=== PATIENT | female | born 2000 | race Hispanic/Latino ===

== ENCOUNTER 2022-05-19 14:36 | Outpatient (CLI) | payer BC, OTHER | END 2022-05-19 14:37 | disposition home or self-care (01) | LOC: EDBD 14:36 → CSHULT 14:36 | PROVIDERS: ATTEND Nurse Practitioner Women's Health | DX: Z34.82 Encounter for supervision of other normal pregnancy, second trimester (principal); Z3A.22 22 weeks gestation of pregnancy | CPT/HCPCS: 76805 ==

== ENCOUNTER 2022-09-11 13:52 | Inpatient (IN) | payer BC, OTHER ==
[2022-09-11] MEDS ORDERED: Butorphanol Tartrate 1 MG/ML VIAL ONE (15:12)
[2022-09-11] MEDS ORDERED: Butorphanol Tartrate 1 MG/ML VIAL SLOW IVP PRN (16:14)
[2022-09-11] MEDS ORDERED: Methylergonovine 0.2 MG/ML VIAL IM PRN ×2 (16:14→19:40)
[2022-09-11] MEDS ORDERED: Carboprost 250 MCG/ML AMP IM PRN (16:14)
[2022-09-11] MEDS ORDERED: Diphenoxylate HCl/Atropine Tablet PO PRN (16:14)
[2022-09-11] MEDS ORDERED: Ondansetron PF 4 MG/2 ML Vial IVP PRN ×2 (16:14→19:40)
[2022-09-11] MEDS ORDERED: Misoprostol 200 MCG TAB PR PRN (16:14)
[2022-09-11] MEDS ORDERED: hydrALAZINE 20 MG/ML VIAL SLOW IVP PRN ×2 (16:14→19:40)
[2022-09-11] MEDS ORDERED: Promethazine HCl 25 MG/ML VIAL IM PRN ×2 (16:14→19:40)
[2022-09-11] MEDS ORDERED: Lidocaine 1% (PF) 30 ML VIAL SC PRN (16:14)
[2022-09-11] MEDS ORDERED: NS w/ Oxytocin 30 units 500 ML IV SCH ×2 (16:15)
[2022-09-11] MEDS ORDERED: Lactated Ringer's 1,000 ML IV SCH (16:15)
[2022-09-11] MEDS ORDERED: NS w/ Oxytocin 30 units 500 ML ONE (16:49)
[2022-09-11 16:55] LABS: Hemoglobin 12.6 g/dL (12.0-15.5); Mean Corpuscular HGB CONC 35.1 g/dL (32.0-36.0); Mean Corpuscular Hemoglobin 29.1 pg (27.0-33.0); Mean Corpuscular Volume 82.9 fl (81.6-98.3); Mean Platelet Volume 10.9 fl (7.4-10.4); Platelet Count 186 10x3/uL (150-450); Red Blood Cell (RBC) Count 4.33 10x6/uL (3.90-5.03); White Blood Cell (WBC) Count 10.1 10x3/uL (3.5-10.5)
[2022-09-11 17:11] LABS: SARS-CoV-2 NAA Rapid Test Not Detected (NotDetected)
[2022-09-11 17:12] LABS: HBSAg Index 0.16 S/CO (0-0.99); Hep B Surf Ag Non-Reactive S/CO (NonReactive)
[2022-09-11 17:14] LABS: Syphilis Antibody Nonreactive (Nonreactive); Syphilis Antibody Index 0.03 S/CO (<1.00 Non-Reactive)
[2022-09-11] MEDS ORDERED: Boostrix 0.5 ML (Tdap) VIAL (>/=7 yrs of age) IM ONE (19:40)
[2022-09-11] MEDS ORDERED: Milk Of Magnesia 30 ML UDCUP PO PRN (19:40)
[2022-09-11] MEDS ORDERED: Lanolin Ointment 7 GM TUBE TOP PRN (19:40)
[2022-09-11] MEDS ORDERED: Benzocaine-Menthol 82.5 ML CAN TOP PRN (19:40)
[2022-09-11] MEDS ORDERED: HYDROcodone/Acetaminophen 5/325 mg Tablet PO PRN ×2 (19:40)
[2022-09-11] MEDS ORDERED: Bisacodyl 10 MG SUPP PR PRN (19:40)
[2022-09-11] MEDS ORDERED: Preparation H Ointment 28 GM TUBE PR PRN (19:40)
[2022-09-11] MEDS: Ibuprofen 800 MG TAB PO SCH (22:57)
[2022-09-11] MEDS ORDERED: Docusate 100 MG CAP PO SCH (23:00)
[2022-09-12] MEDS: Ibuprofen 800 MG TAB PO SCH ×2 (06:19→13:45)
[2022-09-12] MEDS ORDERED: Ferrous Sulfate 325 MG TAB PO SCH (08:00)
[2022-09-12] MEDS ORDERED: Prenatal Vitamin 1 TAB PO SCH (09:00)
[2022-09-12] MEDS ORDERED: Docusate 100 MG CAP PO SCH (09:00)
[2022-09-12 11:38] VITALS: BP 105/58; TEMP 98.2
== END 2022-09-12 20:02 | disposition home or self-care (01) | DRG 807 ==
LOC: CSHLD/OP 13:52 → CSHLD 16:22 → CSHPP 20:05
PROVIDERS: ADMIT Family Medicine; ATTEND Family Medicine
PROC: 10E0XZZ Delivery of Products of Conception, External Approach (ICD-10-PCS; principal; 2022-09-11)
PROC: 10907ZC Drainage of Amniotic Fluid, Therapeutic from Products of Conception, Via Natural or Artificial Opening (ICD-10-PCS; 2022-09-11)
DX: O80 Encounter for full-term uncomplicated delivery (principal); Z37.0 Single live birth; Z3A.38 38 weeks gestation of pregnancy; Z20.822 Contact with and (suspected) exposure to COVID-19; Z79.899 Other long term (current) drug therapy
CPT/HCPCS: 85027; 86780; 86850; 86900; 86901; 87340; 99285; J0595; U0002